=== PATIENT | female | born 1965 ===

== ENCOUNTER → 2017-03-03 | Outpatient (CLI) | payer OTHER ==
[~2017-03-03] MED LIST: AMBIEN 10MG10 MG PO; ATIVAN 1MG T1 MG/TAB PO; BACTROBAN 22GM22 GM TP; BENTYL 20MG20 MG/TAB PO; CIPRO 500MG TA500 MG PO; CLARITIN 1010 MG/TAB PO; DIFLUCAN200 MG PO; FLECTOR1.3% TOP; GLUCOPHAGE1000 MG PO; LANTUS SOLOS100 U/ML SQ; LANTUS100 U/ML SQ; LEVAQUIN 5500 MG/TA1 PO; LEVEMIR FLEX100 U/ML SQ; LIPITOR 40MG TA40 MG PO; MIRALAX PA17 GM/Dose PO; NEURONTIN300 MG/CAP PO; NEXIUM 40MG40 MG PO; NOVOLOG 100U100 U/M1 SQ; NOVOLOG FLEX100 U/ML SQ; PANCRELIPASE PO; PHENERGAN1.25 MG/ML; PROAIR HFA0.09 MG/AC IH; SALINE NASAL 4444 ML NAS; SINGULAIR 110 MG/TAB PO; SYNTHROID0.1 MG/TAB PO; SYNTHROID0.125 MG/T PO; TRICOR145 MG PO; TYLENOL 325MG325 MG PO; ULTRAM 50MG TAB50 MG PO; WELLBUTRIN 75MG75 MG PO; ZANAFLEX 4MG TAB4 MG PO; ZESTRIL 20MG TA20 MG PO; ZOFRAN 4MG T4 MG/TAB PO; [UNRECOGNIZED DRUG - CODE] PO
== END ==
LOC: COL.RAD 17:54
DX: S32.010A Wedge compression fracture of first lumbar vertebra, initial encounter for closed fracture (principal); S32.10XA Unspecified fracture of sacrum, initial encounter for closed fracture; M51.14 Intervertebral disc disorders with radiculopathy, thoracic region; M51.26 Other intervertebral disc displacement, lumbar region; M48.00 Spinal stenosis, site unspecified; M25.48 Effusion, other site; M12.9 Arthropathy, unspecified